=== PATIENT | male | born 1970 | race Caucasian/White ===

== ENCOUNTER 2020-05-10 00:08 | Emergency (ER) | payer OTHER ==
[~2020-05-10] VITALS: Ht 177.8 cm; Wt 89.4 kg
[2020-05-10 00:18] VITALS: Ht 177.8 cm; Wt 89.4 kg
[2020-05-10 01:39] VITALS: BP 117/83
== END 2020-05-10 01:35 | disposition home or self-care (01) ==
LOC: ED 00:08
DX: S67.194A Crushing injury of right ring finger, initial encounter (principal); X58.XXXA Exposure to other specified factors, initial encounter; Y93.89 Activity, other specified; Y92.89 Other specified places as the place of occurrence of the external cause; Y99.8 Other external cause status